=== PATIENT | male | born 1985 | race Caucasian/White ===

== ENCOUNTER 2017-02-03 05:15 | Emergency (ER) | payer BC, OTHER ==
[~2017-02-03] VITALS: Ht 177.8 cm; Wt 81.6 kg
[2017-02-03 05:30] VITALS: BP_SYST 128
--- NOTE | 2017-02-03 05:55 | NUR ---
Patient to ER bed 1 to gown for evaluation. Side rails up. Report given to PIERO FRANCO.
--- NOTE | 2017-02-03 05:58 | NUR ---
ER at bedside examining patient.
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
--- NOTE | 2017-02-03 06:10 | NUR ---
# 20 gauge angiocath placed to L AC. Use of asceptic technique. Opsite placed over site. Blood return noted. Flushed with 10 cc of normal saline. No evidence of infiltration noted. Patient tolerated well.
[2017-02-03] MEDS: HYDROmorphone 1 MG INJ. 1 MG/ML AMPUL IVP ONE ×2 (06:13→07:33)
--- NOTE | 2017-02-03 06:37 | NUR ---
Team time out .
--- NOTE | 2017-02-03 06:38 | NUR ---
Moderate sedation started. See chart for moderate sedation form.
--- NOTE | 2017-02-03 07:05 | NUR ---
Radiology at patient bedside.
--- NOTE | 2017-02-03 07:15 | NUR ---
Patient resting quietly. No acute distress noted. Vital signs within normal range.
--- NOTE | 2017-02-03 07:33 | NUR ---
[address] in ED - 02/03/17 at 0821 by [email or web address] Moderate sedation 1:1 complete see chart for moderate sedation form.
--- NOTE | 2017-02-03 07:33 | NUR ---
Moderated sedation observation complete: see chart for form.
[2017-02-03] MEDS: KETOROLAC TROMETHAMINE 30 MG VIAL IVP ONE (07:34)
[2017-02-03] MEDS: PROPOFOL DRIP 100 ML IV ONE (07:51)
--- NOTE | 2017-02-03 08:32 | NUR ---
Patient given written and verbal discharge instructions and verbalizes understanding. ER MD discussed with patient the results and treatment provided. Patient in stable condition. ID arm band removed. IV catheter removed intact and dressing applied, no active bleeding. Rx of Motrin, [place] given. Patient educated on pain management and to follow up with PMD. Pain Scale 0/10. Opportunity for questions provided and answered.
[2017-02-03 08:34] VITALS: BP_SYST 106
== END 2017-02-03 08:34 | disposition home or self-care (01) ==
LOC: SED 05:15
DX: S43.084A Other dislocation of right shoulder joint, initial encounter (principal); X58.XXXA Exposure to other specified factors, initial encounter; Y93.89 Activity, other specified; Y92.89 Other specified places as the place of occurrence of the external cause; Y99.8 Other external cause status
CPT/HCPCS: 23650; 73020; 73030; 96374; 96375; 96376; 99152; 99153; 99285; J1170; J1885; J2704

== ENCOUNTER 2017-04-03 19:45 | Emergency (ER) | payer BC ==
[~2017-04-03] VITALS: Ht 177.8 cm; Wt 79.4 kg
[2017-04-03 19:55] VITALS: BP_SYST 154
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
--- NOTE | 2017-04-03 20:02 | NUR ---
Patient to ER bed 04 to gown for evaluation. Side rails up. Report given to PIERO Pollack
--- NOTE | 2017-04-03 20:30 | NUR ---
x-ray at bedside.
[2017-04-03] MEDS ORDERED: traMADol HCL HCL 50 MG TABLET (ULTRAM) PO ONE (20:45)
--- NOTE | 2017-04-03 20:45 | NUR ---
Dr. Haynes at bedside to assess pt.
[2017-04-03 21:40] VITALS: BP_SYST 132
--- NOTE | 2017-04-03 21:40 | NUR ---
Patient given written and verbal discharge instructions and verbalizes understanding. ER MD discussed with patient the results and treatment provided. Patient in stable condition. ID arm band removed. Rx of Tramadol given. Patient educated on pain management and to follow up with PMD. Pain Scale 8/10, medicated prior to discharge. Opportunity for questions provided and answered. Medication side effect fact sheet provided.
== END 2017-04-03 21:40 | disposition home or self-care (01) ==
LOC: SED 19:45
DX: S63.502A Unspecified sprain of left wrist, initial encounter (principal); X58.XXXA Exposure to other specified factors, initial encounter; Y93.89 Activity, other specified; Y92.89 Other specified places as the place of occurrence of the external cause; Y99.8 Other external cause status
CPT/HCPCS: 99284

== ENCOUNTER 2017-05-03 15:14 | Emergency (ER) | payer BC ==
[~2017-05-03] VITALS: Ht 177.8 cm; Wt 85.7 kg
--- NOTE | 2017-05-03 15:18 | NUR ---
Placed in room 2 . Placed on production director, blood pressure machine and pulse oximeter. To gown for exam. Side rails up. Report given to Carlos HARRY.
[2017-05-03 15:19] VITALS: BP_SYST 137
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
--- NOTE | 2017-05-03 15:20 | NUR ---
# 20 gauge angiocath placed to LAC. Use of asceptic technique. Opsite placed over site. Blood return noted. Flushed with 10 cc of normal saline. No evidence of infiltration noted. Patient tolerated well.
--- NOTE | 2017-05-03 15:30 | NUR ---
Dr. Marion at bedside.
--- NOTE | 2017-05-03 15:50 | NUR ---
Patient transported to radiology via ambulatory, accompanied by rad staff.
[2017-05-03] MEDS ORDERED: MORPHINE 4 MG/ML INJ. SYRINGE IVP ONE (16:15)
[2017-05-03] MEDS ORDERED: ONDANSETRON HCL 4 MG/2 ML VIAL IVP ONE (16:30)
--- NOTE | 2017-05-03 16:50 | NUR ---
Reduction of dislocation of right shoulder performed by Dr. Marion with myself at bedside for counter traction. Sedation was not need for this reduction.
[2017-05-03 17:35] VITALS: BP_SYST 128
--- NOTE | 2017-05-03 17:35 | NUR ---
Patient given written and verbal discharge instructions and verbalizes understanding. ER MD discussed with patient the results and treatment provided. Patient in stable condition. ID arm band removed. IV catheter removed intact and dressing applied, no active bleeding. Rx of Tylenol with Codeine given. Patient educated on pain management and to follow up with PMD. Pain Scale 2/10. Opportunity for questions provided and answered. Medication side effect fact sheet provided.
== END 2017-05-03 17:35 | disposition home or self-care (01) ==
LOC: SED 15:14
DX: S43.084A Other dislocation of right shoulder joint, initial encounter (principal); R03.0 Elevated blood-pressure reading, without diagnosis of hypertension; X58.XXXA Exposure to other specified factors, initial encounter; Y93.11 Activity, swimming; Y92.34 Swimming pool (public) as the place of occurrence of the external cause; Y99.8 Other external cause status
CPT/HCPCS: 23650; 73020; 73030; 96374; 99284; J2270; J2405

== ENCOUNTER 2017-05-09 10:56 | Emergency (ER) | payer BC ==
[~2017-05-09] VITALS: Ht 177.8 cm; Wt 79.4 kg
[2017-05-09 10:59] VITALS: BP_SYST 124
[2017-05-09] MEDS ORDERED: MORPHINE 4 MG/ML INJ. SYRINGE IVP ONE ×2 (11:45→12:45)
[2017-05-09] MEDS ORDERED: ONDANSETRON HCL 4 MG/2 ML VIAL IVP ONE ×2 (11:45→15:00)
[2017-05-09] MEDS ORDERED: ETOMIDATE 20 MG/ 10 ML VIAL (AMIDATE) IVP ONE ×2 (12:30→13:45)
[2017-05-09] MEDS ORDERED: PROPOFOL DRIP 100 ML IV ONE ×2 (13:18→13:45)
[2017-05-09] MEDS ORDERED: KETAMINE HCL 500 MG/10 ML VIAL ONE (13:24)
[2017-05-09] MEDS ORDERED: KETAMINE HCL 500 MG/10 ML VIAL IVP ONE (13:45)
[2017-05-09] MEDS ORDERED: ONDANSETRON 4 MG ODT TAB PO ONE (14:30)
[2017-05-09] MEDS ORDERED: ONDANSETRON HCL 4 MG/2 ML VIAL ONE (14:31)
[2017-05-09 14:49] VITALS: BP_SYST 118
== END 2017-05-09 14:49 | disposition home or self-care (01) ==
LOC: SED 10:56
DX: S43.034A Inferior dislocation of right humerus, initial encounter (principal); M24.411 Recurrent dislocation, right shoulder; R03.0 Elevated blood-pressure reading, without diagnosis of hypertension; X58.XXXA Exposure to other specified factors, initial encounter; Y93.89 Activity, other specified; Y92.89 Other specified places as the place of occurrence of the external cause; Y99.8 Other external cause status
CPT/HCPCS: 23650; 73020; 73030; 96374; 96375; 96376; 99152; 99285; J2270; J2405; J2704; J3490; J7030

== ENCOUNTER 2017-12-06 06:43 | Emergency (ER) | payer BC ==
[~2017-12-06] VITALS: Ht 177.8 cm; Wt 72.6 kg
[2017-12-06 06:48] VITALS: BP_SYST 138
[2017-12-06] MEDS ORDERED: KETOROLAC TROMETHAMINE 30 MG VIAL IVP ONE (07:00)
[2017-12-06] MEDS ORDERED: KETAMINE 30 MG/3 ML SYRINGE IVP ONE (07:00)
[2017-12-06] MEDS ORDERED: NACL 0.9% 1,000 ML IV ONE (07:00)
[2017-12-06] MEDS ORDERED: MIDAZOLAM HCL 5 MG/5 ML VIAL IVP ONE (07:00)
[2017-12-06 08:34] VITALS: BP_SYST 132
== END 2017-12-06 08:34 | disposition home or self-care (01) ==
LOC: SED 06:43
DX: S43.005A Unspecified dislocation of left shoulder joint, initial encounter (principal); R03.0 Elevated blood-pressure reading, without diagnosis of hypertension; X58.XXXA Exposure to other specified factors, initial encounter; Y93.89 Activity, other specified; Y92.89 Other specified places as the place of occurrence of the external cause; Y99.8 Other external cause status
CPT/HCPCS: 23650; 73030; 96374; 99152; 99285; J1885; J2250; J7030; 96361

== ENCOUNTER 2022-03-02 00:48 | Emergency (ER) | payer BC ==
[~2022-03-02] VITALS: Ht 175.3 cm; Wt 68.0 kg
[2022-03-02 01:30] VITALS: BP_SYST 141
[2022-03-02 03:27] LABS: BILIRUBIN,URINE NEGATIVE (NEGATIVE); CLARITY/URINE CLEAR (CLEAR); COLOR,URINE YELLOW (YELLOW); GLUCOSE,URINE NEGATIVE (NEGATIVE); KETONES,URINE TRACE (NEGATIVE); LEUKOCYTE ESTERASE ,URINE NEGATIVE (NEGATIVE); NITRITE, URINE NEGATIVE (NEGATIVE); PROTEIN URINE NEGATIVE (NEGATIVE); UROBILINOGEN,URINE 0.2 (0.2-1.0)
[2022-03-02 03:53] LABS: BLOOD, URINE TRACE (NEGATIVE)
[2022-03-02 04:17] LABS: BACTERIA,URINE FEW /HPF (None Seen); WBC,URINE 0-3 /HPF (0-3)
[2022-03-02 04:18] LABS: MUCUS,URINE 1+ /LPF (None Seen)
[2022-03-02 04:24] LABS: CANNABINOID, URINE POSITIVE (NEG <=50); URINE AMPHETAMINE POSITIVE (NEG <=500)
[2022-03-02 04:25] LABS: BARBITURATE, URINE NEGATIVE (NEG <=200); BENZODIAZEPINE, URINE POSITIVE (NEG <=150); COCAINE, URINE NEGATIVE (NEG <=150); METHAMPHETAMINES SCREEN,URINE NEGATIVE (NEG <=500); OPIATE, URINE NEGATIVE (NEG <=100); PHENCYCLIDINE SCREEN,URINE NEGATIVE (NEG <=25); UR TRICYCLIC ANTIDEPRESSANTS NEGATIVE (NEG <=300); URINE METHADONE NEGATIVE (NEG <=200); URINE OXYCODONE SCREEN NEGATIVE (NEG <=100); URINE PROPOXYPHENE SCREEN NEGATIVE (NEG <=300)
[2022-03-02] MEDS ORDERED: DIAZ5TAB PO ×2 (04:30→04:35)
[2022-03-02] MEDS ORDERED: DIAZEPAM 5 MG TABLET (VALIUM) PO ONE (04:30)
[2022-03-02] MEDS ORDERED: PHEN-726 PO (04:35)
== END 2022-03-02 04:41 | disposition home or self-care (01) ==
LOC: SED 00:48
DX: F41.9 Anxiety disorder, unspecified (principal); R30.0 Dysuria; E86.0 Dehydration; R33.9 Retention of urine, unspecified; Z79.899 Other long term (current) drug therapy
CPT/HCPCS: 80307; 81000; 99283

== ENCOUNTER 2022-06-11 12:05 | Emergency (ER) | payer BC ==
[~2022-06-11] VITALS: Ht 167.6 cm; Wt 72.6 kg
[~2022-06-11 12:05] MED LIST: DIAZ5TAB PO; PHEN-726 PO
[2022-06-11 12:36] VITALS: BP_SYST 133
--- NOTE | 2022-06-11 13:15 | NUR ---
PT TAKEN TO ULTRASOUND AND DURING TESTING STOPPED THE ULTRASOUND DUE TO PAIN, PT STATED THAT TESTICLES DO NOT HURT. PT STATES IT IS A SUPERFICIAL SKIN PROBLEM.
[2022-06-11 13:30] LABS: BASOPHILS # (AUTO) 0.1 K/uL (0.0-0.2); BASOPHILS % (AUTO) 0.8 % (0.0-2.0); EOSINOPHILS # (AUTO) 0.4 K/uL (0.0-0.4); EOSINOPHILS % (AUTO) 4.3 % (0.0-4.0); HEMATOCRIT 46.4 % (36-54); HEMOGLOBIN 15.7 g/dL (14.0-18.0); LYMPHOCYTES # (AUTO) 2.4 K/uL (1.0-5.5); LYMPHOCYTES % (AUTO) 25.9 % (20.5-51.5); MEAN CORPUSCULAR HEMOGLOBIN 29 pg (27-31); MEAN CORPUSCULAR HGB CONC 34 % (32-36); MEAN CORPUSCULAR VOLUME 86 fL (79.0-98.0); MONOCYTES # (AUTO) 0.6 K/uL (0.0-1.0); MONOCYTES % (AUTO) 6.6 % (1.7-9.3); NEUTROPHILS # (AUTO) 5.8 K/uL (1.8-7.7); NEUTROPHILS % (AUTO) 62.4 % (40.0-70.0); PLATELET COUNT (AUTO) 199 K/uL (130-430); RED BLOOD CELL COUNT(AUTO) 5.37 MIL/uL (4.2-6.2); RED CELL DISTRIBUTION WIDTH 12.8 % (9.0-15.0); WHITE BLOOD COUNT (AUTO) 9.2 K/uL (4.8-10.8)
[2022-06-11 13:53] LABS: CALCIUM 8.9 mg/dL (8.4-11.0); CREATININE 0.8 mg/dL (0.55-1.30); TOTAL BILIRUBIN 0.3 mg/dL (0.0-1.0)
--- NOTE | 2022-06-11 14:30 | NUR ---
CALLED FOR BED ASSIGNMENT AND UNABLE TO LOCATE PT IN WAITING ROOM
--- NOTE | 2022-06-11 14:40 | NUR ---
CALLED FOR BED ASSIGNMENT, UNABLE TO LOCATE PT IN WAITING ROOM.
--- NOTE | 2022-06-11 14:57 | NUR ---
CALLED TO TRIAGE ROOM AND UNABLE TO LOCATE PT IN WAITING ROOM. PT LEFT WITHOUT BEING SEEN.
--- NOTE | 2022-06-11 15:15 | NUR ---
Pt returned to ER, pt placed on Room 05, awaiting for MSE
--- NOTE | 2022-06-11 15:15 | NUR ---
PT RECEIVED, CARE ASSUMED. PT IN ROOM WITH MARKELL PARKINSON AT BEDSIDE.
[2022-06-11] MEDS ORDERED: CLOT24CR2 TP (15:42)
[2022-06-11] MEDS ORDERED: HYDC2.5% TP (15:42)
[2022-06-11 15:50] VITALS: BP_SYST 133
--- NOTE | 2022-06-11 15:51 | NUR ---
Patient given written and verbal discharge instructions and verbalizes understanding. ER MD discussed with patient the results and treatment provided. Patient in stable condition. ID arm band removed. Rx of Lotrimim and Hydrocortisone given. Patient educated on pain management and to follow up with PMD. Pain Scale 2/10 . Opportunity for questions provided and answered. Medication side effect fact sheet provided.
== END 2022-06-11 15:51 | disposition home or self-care (01) ==
LOC: SED 12:05
DX: B35.6 Tinea cruris (principal); R21 Rash and other nonspecific skin eruption; Z79.899 Other long term (current) drug therapy
CPT/HCPCS: 36415; 80053; 85025; 99283

== ENCOUNTER 2022-06-16 12:00 | Emergency (ER) | payer BC ==
[~2022-06-16] VITALS: Ht 177.8 cm; Wt 72.6 kg
[~2022-06-16 12:00] MED LIST changes: +CLOT24CR2 TP; +HYDC2.5% TP
[2022-06-16 12:19] VITALS: BP_SYST 132
[2022-06-16] MEDS ORDERED: CLOT15CR5 TP (14:24)
[2022-06-16] MEDS ORDERED: IBUP-1971 PO (14:24)
[2022-06-16 14:50] VITALS: BP_SYST 132
== END 2022-06-16 14:50 | disposition home or self-care (01) ==
LOC: SED 12:00
DX: N45.1 Epididymitis (principal); N43.40 Spermatocele of epididymis, unspecified; Z88.8 Allergy status to other drugs, medicaments and biological substances
CPT/HCPCS: 76870-TC; 99284

== ENCOUNTER 2022-09-09 08:43 | Emergency (ER) | payer BC ==
[~2022-09-09] VITALS: Ht 177.8 cm; Wt 72.6 kg
[~2022-09-09 08:43] MED LIST changes: +CLOT15CR5 TP; +IBUP-1971 PO
[2022-09-09 09:00] VITALS: BP_SYST 129; PULSE 91; RESP 18; TEMP 98.3; O2SAT 97
--- NOTE | 2022-09-09 09:13 | NUR ---
Patient to ER bed 07 to gown for evaluation. Side rails up.
--- NOTE | 2022-09-09 09:15 | NUR ---
ER at bedside examining patient.
[2022-09-09] MEDS ORDERED: IBUPROFEN 600 MG TABLET PO ONE (10:00)
--- NOTE | 2022-09-09 10:00 | NUR ---
Hernandez insertion# 16 FR Hernandez catheter with use of sterile technique. Immediate return of 400 cc yellow urine noted. Bedside drainage bag placed below level of bladder. Urine sample collected and sent to lab. Pt tolerated procedure with discomfort and grimacing. . Patient arrived with hernandez in place, changed due to standard of practice prior to admission. Patient unable to toilet self.
[2022-09-09 10:34] LABS: BILIRUBIN,URINE NEGATIVE (NEGATIVE); BLOOD, URINE 2+ (NEGATIVE); CLARITY/URINE CLEAR (CLEAR); COLOR,URINE YELLOW (YELLOW); GLUCOSE,URINE NEGATIVE (NEGATIVE); KETONES,URINE 1+ (NEGATIVE); LEUKOCYTE ESTERASE ,URINE NEGATIVE (NEGATIVE); NITRITE, URINE NEGATIVE (NEGATIVE); PROTEIN URINE NEGATIVE (NEGATIVE); UROBILINOGEN,URINE 0.2 (0.2-1.0)
[2022-09-09] MEDS ORDERED: TRAM50TA2 PO (10:44)
[2022-09-09 11:04] VITALS: BP_SYST 129; PULSE 91; RESP 18; TEMP 98.3; O2SAT 97
--- NOTE | 2022-09-09 11:04 | NUR ---
Patient given written and verbal discharge instructions and verbalizes understanding. ER MD discussed with patient the results and treatment provided. Patient in stable condition. ID arm band removed. Rx of ultram given. Patient educated on pain management and to follow up with PMD. Opportunity for questions provided and answered. Medication side effect fact sheet provided.
[2022-09-09 11:08] LABS: BACTERIA,URINE RARE /HPF (None Seen)
== END 2022-09-09 11:04 | disposition home or self-care (01) ==
LOC: SED 08:43
DX: N39.0 Urinary tract infection, site not specified (principal); R33.9 Retention of urine, unspecified; Z79.899 Other long term (current) drug therapy
CPT/HCPCS: 81000; 99284